=== PATIENT | male | born 1975 | race Caucasian/White ===

== ENCOUNTER 2018-10-15 16:51 | Emergency (ER) | payer OTHER ==
[~2018-10-15] VITALS: Ht 195.6 cm; Wt 99.8 kg
[2018-10-15 16:55] VITALS: Ht 195.6 cm; Wt 99.8 kg
[2018-10-15 18:21] VITALS: BP 136/87
== END 2018-10-15 18:21 | disposition other institution (70) ==
LOC: ED 16:51
DX: S61.452A Open bite of left hand, initial encounter (principal); W54.0XXA Bitten by dog, initial encounter; Y93.89 Activity, other specified; Y92.89 Other specified places as the place of occurrence of the external cause; Y99.8 Other external cause status
CPT/HCPCS: J2001

== ENCOUNTER 2018-10-15 16:51 | Emergency (ER) | payer OTHER | END 2018-10-15 18:21 | disposition other institution (70) | LOC: ED 16:51 | DX: Z02.89 Encounter for other administrative examinations (principal) ==